=== PATIENT | female | born 1965 | race Caucasian/White ===

== ENCOUNTER 2018-03-31 15:41 | Inpatient (IN) | payer BC, SELFPAY ==
[2018-03-31 15:57] VITALS: BMI 28.7
[2018-03-31] MEDS ORDERED: Iohexol 240 (50 ml) PO STA (16:22)
[2018-03-31] MEDS ORDERED: Sodium Chloride 0.9% 1,000 ML IV STA (16:22)
[2018-03-31 16:35] LABS: BASO % 0.2 % (0.0-2.0); EOS % 0.1 % (0.0-4.0); HEMOGLOBIN 13.4 g/dL (11.0-16.0); LYMPH # 1.7 K/uL (1.0-4.3); LYMPH % 11.4 % (20.0-40.0); MEAN CELL VOLUME 84.5 fL (81.0-99.0); MEAN CORPUSCULAR HEMOGLOBIN 28.3 pg (27.0-31.0); MEAN CORPUSCULAR HGB CONC 33.5 g/dL (33.0-37.0); MEAN PLATELET VOLUME 8.7 fL (7.2-11.7); MONO # 0.6 K/uL (0.0-0.8); MONO % 4.3 % (0.0-10.0); NEUT # 12.3 K/uL (1.8-7.0); RBC 4.72 Mil/uL (3.80-5.20); RED CELL DISTRIBUTION WIDTH 16.6 % (11.5-14.5); WHITE BLOOD COUNT 14.6 K/uL (4.8-10.8)
[2018-03-31] MEDS ORDERED: Iohexol 240 (50 ml) ONE (16:37)
[2018-03-31] MEDS ORDERED: Sodium Chloride 0.9% 1,000 ML ONE (16:37)
[2018-03-31 16:43] LABS: INR 1.3; PROTHROMBIN TIME 14.2 SECONDS (9.7-12.2)
[2018-03-31 16:49] LABS: ALB/GLOB RATIO 1.1 (1.0-2.1); ALBUMIN 4.3 g/dL (3.5-5.0); ALT/SGPT 36 U/L (9-52); AST/SGOT 25 U/L (14-36); BLOOD UREA NITROGEN 9 mg/dL (7-17); CALCIUM 9.3 mg/dl (8.6-10.4); GFR NON-AFRICAN AMERICAN > 60; LIPASE 38 U/L (23-300)
[2018-03-31] MEDS ORDERED: Iodixanol 320 MG/ML 100 ML BOTTLE IV ONE (17:12)
--- NOTE | 2018-03-31 17:25 | C.PDOC ---
Addendum entered and electronically signed by Analia Holland PA-C 04/03/18 19:07: Addendum Addendum: 04/03/18 19:06 for signature Original Note: History Of Present Illness 52 year old female presents to the ED for evaluation of right lower quadrant abdominal pain which has been intermittent for the past 3 days. Patient was evaluated her by PMD today and was referred to the ED for possible appendicitis. Patient denies fever, chills. LMP was 2010. PMD: Dr. Woodrow Hodges Time Seen by Provider: 03/31/18 16:01 Chief Complaint (Nursing): Abdominal Pain History Per: Patient History/Exam Limitations: no limitations Onset/Duration Of Symptoms: Days (3), Intermittent Episodes Current Symptoms Are (Timing): Still Present Location Of Pain/Discomfort: RLQ Quality Of Discomfort: "Pain" Associated Symptoms: denies: Fever, Chills Additional History Per: Patient Past Medical History Reviewed: Historical Data, Nursing Documentation, Vital Signs Vital Signs: Last Vital Signs Temp 99.2 F 03/31/18 15:57 Pulse 122 H 03/31/18 15:57 Resp 18 03/31/18 15:57 BP 148/82 03/31/18 15:57 Pulse Ox 98 03/31/18 15:57 - Medical History PMH: No Chronic Diseases Surgical History: No Surg Hx Family History: States: Unknown Family Hx - Social History Hx Alcohol Use: No Hx Substance Use: No Review Of Systems Constitutional: Negative for: Fever, Chills Gastrointestinal: Positive for: Abdominal Pain (right lower quadrant ) Physical Exam - Physical Exam Appears: Non-toxic, No Acute Distress Skin: Normal Color, Warm, Dry Head: Atraumatic, Normacephalic Eye(s): bilateral: Normal Inspection Oral Mucosa: Moist Neck: Supple Chest: Symmetrical, No Deformity, No Tenderness Cardiovascular: Rhythm Regular, No Murmur Respiratory: Normal Breath Sounds, No Rales, No Rhonchi, No Wheezing Gastrointestinal/Abdominal: Soft, Tenderness (right lower quadrant ), No Guarding, No Rebound Extremity: Normal ROM, Capillary Refill (less than 2 seconds ) Neurological/Psych: Oriented x3, Normal Speech, Normal Cognition ED Course And Treatment - Laboratory Results Result Diagrams: 03/31/18 16:29 03/31/18 16:29 O2 Sat by Pulse Oximetry: 98 (on RA) Pulse Ox Interpretation: Normal - CT Scan/US CT A/P Other Rad Studies (CT/US): Read By Radiologist, Radiology Report Reviewed CT/US Interpretation: PROCEDURE: CT Abdomen and Pelvis with contrast. HISTORY: RLQ abd pain. COMPARISON: None. TECHNIQUE: Contrast dose: 100 mL Visipaque 320. Radiation dose: Total exam DLP = 801.82 mGy-cm. This CT exam was performed using one or more of the following dose reduction techniques: Automated exposure control, adjustment of the mA and/or kV according to patient size, and/or use of iterative reconstruction technique. FINDINGS: LOWER THORAX: Unremarkable. LIVER: Hepatic steatosis. No gross lesion or ductal dilatation. GALLBLADDER AND BILE DUCTS: Unremarkable. PANCREAS: Unremarkable. No gross lesion or ductal dilatation. SPLEEN: Unremarkable. ADRENALS: Unremarkable. No mass. KIDNEYS AND URETERS: Unremarkable. No hydronephrosis. No solid mass. VASCULATURE: Unremarkable. No aortic aneurysm. No aortic atherosclerotic calcification or mural plaque present. BOWEL: Unremarkable. Prominent amount of retained colonic stool. No obstruction. No gross mural thickening. APPENDIX: Thick walled 13 mm appendix with periappendiceal stranding. No adjacent fluid collection. PERITONEUM: Unremarkable. No free fluid. No free air. LYMPH NODES: Unremarkable. No enlarged lymph nodes. BLADDER: Unremarkable. REPRODUCTIVE: Unremarkable. BONES: No acute fracture. OTHER FINDINGS: None. IMPRESSION: Acute appendicitis. No evidence of perforation. Findings conveyed to DECLAN Holland by Dr. Vaz at 5:33 p.m. on 03/31/2018. Progress Note: Bloodwork, urinalysis, CT A/P ordered and reviewed. IV Fluids given. CT scan shows patient has acute appendicitis. Case discussed with Dr. Godinez who accepts the patient for surgery. Advised to contact Dr. Tyler for medical consult. Case discussed with Dr. Tyler, who accepts the consult. Disposition - Disposition Disposition: HOSPITALIZED Disposition Time: 17:49 Condition: FAIR Forms: [facility] (Frisian) - Clinical Impression Clinical Impression: Acute appendicitis - PA / SDV PILOT/NAVIGATOR/DDS OPERATOR / Resident Statement MD/DO has reviewed & agrees with the documentation as recorded. - Scribe Statement The provider has reviewed the documentation as recorded by the Scribe (Iwona Steven) All medical record entries made by the Scribe were at my direction and personally dictated by me. I have reviewed the chart and agree that the record accurately reflects my personal performance of the history, physical exam, medical decision making, and the department course for this patient. I have also personally directed, reviewed, and agree with the discharge instructions and disposition. Decision To Admit - Pt Status Changed To: Hospital Disposition Of: Inpatient - Admit Certification Admit to Inpatient:: After my assessment, the patient will require hospitalization for at least two midnights. This is because of the severity of symptoms shown, intensity of services needed, and/or the medical risk in this patient being treated as an outpatient. - InPatient: Physician Admission Certification:: will need surgical treatment for acute appendicitis - . Bed Request Type: Regular Admitting Physician: Phoenix Godinez Patient Diagnosis: Acute appendicitis
[2018-03-31 17:28] LABS: SQUAMOUS EPITHIAL 2 /hpf (0-5); URINE BACTERIA RARE (<OCC); URINE BILIRUBIN NEGATIVE (NEGATIVE); URINE BLOOD 2+ (NEGATIVE); URINE CLARITY Hazy (Clear); URINE COLOR Yellow (YELLOW); URINE GLUCOSE (UA) NORMAL (Normal); URINE LEUKOCYTE ESTERASE NEG Leu/uL (Negative); URINE PROTEIN NEGATIVE (NEGATIVE); URINE UROBILINOGEN NORMAL mg/dL (0.2-1.0)
--- NOTE | 2018-03-31 17:37 | CT ---
Date of service: 03/31/2018 PROCEDURE: CT Abdomen and Pelvis with contrast HISTORY: RLQ abd pain COMPARISON: None. TECHNIQUE: Contrast dose: 100 mL Visipaque 320 Radiation dose: Total exam DLP = 801.82 mGy-cm. This CT exam was performed using one or more of the following dose reduction techniques: Automated exposure control, adjustment of the mA and/or kV according to patient size, and/or use of iterative reconstruction technique. FINDINGS: LOWER THORAX: Unremarkable. LIVER: Hepatic steatosis. No gross lesion or ductal dilatation. GALLBLADDER AND BILE DUCTS: Unremarkable. PANCREAS: Unremarkable. No gross lesion or ductal dilatation. SPLEEN: Unremarkable. ADRENALS: Unremarkable. No mass. KIDNEYS AND URETERS: Unremarkable. No hydronephrosis. No solid mass. VASCULATURE: Unremarkable. No aortic aneurysm. No aortic atherosclerotic calcification or mural plaque present. BOWEL: Unremarkable. Prominent amount of retained colonic stool. No obstruction. No gross mural thickening. APPENDIX: Thick walled 13 mm appendix with periappendiceal stranding. No adjacent fluid collection. PERITONEUM: Unremarkable. No free fluid. No free air. LYMPH NODES: Unremarkable. No enlarged lymph nodes. BLADDER: Unremarkable. REPRODUCTIVE: Unremarkable. BONES: No acute fracture. OTHER FINDINGS: None. IMPRESSION: Acute appendicitis. No evidence of perforation. Findings conveyed to DECLAN Holland by Dr. Vaz at 5:33 p.m. on 03/31/2018.
[2018-03-31] MEDS ORDERED: Piperacillin/Tazobact 3.375 gm 100 ML IV STA (17:42)
[2018-03-31] MEDS ORDERED: Morphine 4 MG/ML VIAL IV STA (17:43)
[2018-03-31] MEDS ORDERED: Piperacillin/Tazobact 3.375 gm 100 ML IVPB ONE (17:50)
[2018-03-31] MEDS ORDERED: Morphine 4 MG/ML VIAL ONE (17:58)
[2018-03-31] MEDS ORDERED: Oxycodone/Acetaminophen 5/325 mg Tab PO PRN (18:15)
[2018-03-31] MEDS ORDERED: LACTATED RINGER S IV SCH (19:15)
[2018-03-31] MEDS ORDERED: POTASSIUM PHOSPHATE IV SCH (19:15)
--- NOTE | 2018-03-31 19:20 | CP.PCM.HP ---
History of Present Illness - History of Present Illness History of Present Illness: H&P for Dr. Godinez CC: acute appendicitis Pt is a 52F with PMH of hypothyroidism and HLD, PSH of fibroidectomies and hysterectomy who presented to ED for 2 days of worsening abdominal pain. Pt states that her pain began suddenly Saturday, was at first diffuse and then localized to the RLQ. Patient states that pain improved Saturday but then was so bad this AM she came to the ER. Denies any fevers, but admits to nausea and vomiting green/yellow fluid on Saturday, denies any hematemesis and denies any nausea at present. States she had one bout of diarrhea today in the ER--nonbloody, normal color. Patient denies any dysuria, hematuria, back pain, chest pain, SOB, or any other symptoms. she had never had this pain before. PMH: hypothyroidism, HLD PSH: fibroidectomy, hysterectomy, jaw surgery ALL: nkda Social: denies tobacco, ETOH, or drugs use Present on Admission - Present on Admission Any Indicators Present on Admission: No Review of Systems - Review of Systems All systems: reviewed and no additional remarkable complaints except (as per HPI) Past Patient History - Past Medical History & Family History Past Medical History?: Yes Past Family History: Reviewed and not pertinent - Past Social History Smoking Status: Never Smoked Alcohol: None Drugs: Denies - CARDIAC Hx Heart Attack: No Hx Hypercholesterolemia: Yes Hx Hypertension: No - PULMONARY Hx Respiratory Disorders: No - ENDOCRINE/METABOLIC Hx Endocrine Disorders: Yes Hx Diabetes Mellitus Type 1: No Hx Diabetes Mellitus Type 2: No Hx Hypothyroidism: Yes - GASTROINTESTINAL Hx Gastrointestinal Disorders: No - GENITOURINARY/GYNECOLOGICAL Hx Reproductive Disorders: Yes (uterine fibroids) - PSYCHIATRIC Hx Substance Use: No - SURGICAL HISTORY Hx Surgeries: Yes Hx Hysterectomy: Yes (PARTIAL PER PATIENT) Other/Comment: uterine fibroidectomy, jaw surgery - ANESTHESIA Hx Anesthesia: Yes Meds Allergies/Adverse Reactions: Allergies Allergy/AdvReac Type Severity Reaction Status Date / Time No Known Allergies Allergy Unverified 03/31/18 15:56 Physical Exam - Constitutional Appears: Well, Non-toxic, No Acute Distress - Head Exam Head Exam: ATRAUMATIC, NORMOCEPHALIC - Eye Exam Eye Exam: Normal appearance. absent: Conjunctival injection, Scleral icterus - ENT Exam ENT Exam: Mucous Membranes Moist, Normal Oropharynx - Respiratory Exam Respiratory Exam: NORMAL BREATHING PATTERN. absent: Accessory Muscle Use, Respiratory Distress - Cardiovascular Exam Cardiovascular Exam: RRR - GI/Abdominal Exam GI & Abdominal Exam: Soft, Tenderness (RLQ severe tenderness, RUQ mild tenderness). absent: Distended, Firm, Rebound, Rigid Additional comments: positive rovsings sign - Extremities Exam Extremities exam: Positive for: pedal pulses present. Negative for: calf tenderness, pedal edema - Neurological Exam Neurological exam: Alert, Oriented x3 - Psychiatric Exam Psychiatric exam: Normal Affect, Normal Mood - Skin Skin Exam: Dry, Intact, Normal Color, Warm Results - Vital Signs Recent Vital Signs: Last Vital Signs Temp 99.6 F 03/31/18 18:16 Pulse 102 H 03/31/18 18:16 Resp 18 03/31/18 18:16 BP 115/75 03/31/18 18:16 Pulse Ox 98 03/31/18 18:16 - Labs Result Diagrams: 03/31/18 16:29 03/31/18 16:29 Labs: Laboratory Results - last 24 hr 03/31/18 03/31/18 03/31/18 16:29 16:29 16:29 WBC 14.6 H D RBC 4.72 Hgb 13.4 Hct 39.9 MCV 84.5 D MCH 28.3 MCHC 33.5 RDW 16.6 H Plt Count 250 MPV 8.7 Neut % (Auto) 84.0 H Lymph % (Auto) 11.4 L [place] % (Auto) 4.3 Eos % (Auto) 0.1 Baso % (Auto) 0.2 Neut # (Auto) 12.3 H Lymph # (Auto) 1.7 [place] # (Auto) 0.6 Eos # (Auto) 0.0 Baso # (Auto) 0.0 PT 14.2 H INR 1.3 APTT 30 Sodium Potassium Chloride Carbon Dioxide Anion Gap BUN Creatinine Est GFR ( Amer) Est GFR (Non-Af Amer) Random Glucose Calcium Total Bilirubin AST ALT Alkaline Phosphatase Total Protein Albumin Globulin Albumin/Globulin Ratio Lipase Urine Color Yellow Urine Clarity Hazy Urine pH 6.0 Ur Specific [place] 1.012 Urine Protein Negative Urine Glucose (UA) Normal Urine Ketones 1+ H Urine Blood 2+ H Urine Nitrate Negative Urine Bilirubin Negative Urine Urobilinogen Normal Ur Leukocyte Esterase Neg Urine WBC (Auto) 3 Urine RBC (Auto) 9 H Ur Squamous Epith Cells 2 Urine Bacteria Rare 03/31/18 16:29 WBC RBC Hgb Hct MCV MCH MCHC RDW Plt Count MPV Neut % (Auto) Lymph % (Auto) [place] % (Auto) Eos % (Auto) Baso % (Auto) Neut # (Auto) Lymph # (Auto) [place] # (Auto) Eos # (Auto) Baso # (Auto) PT INR APTT Sodium 140 Potassium 3.4 L Chloride 102 Carbon Dioxide 24 Anion Gap 18 BUN 9 Creatinine 0.6 L Est GFR ( Amer) > 60 Est GFR (Non-Af Amer) > 60 Random Glucose 120 H Calcium 9.3 Total Bilirubin 0.7 AST 25 ALT 36 Alkaline Phosphatase 109 Total Protein 8.1 Albumin 4.3 Globulin 3.8 Albumin/Globulin Ratio 1.1 Lipase 38 Urine Color Urine Clarity Urine pH Ur Specific [place] Urine Protein Urine Glucose (UA) Urine Ketones Urine Blood Urine Nitrate Urine Bilirubin Urine Urobilinogen Ur Leukocyte Esterase Urine WBC (Auto) Urine RBC (Auto) Ur Squamous Epith Cells Urine Bacteria - Imaging and Cardiology CT scan - abdomen Status: Image reviewed by me, Report reviewed by me Assessment & Plan - Assessment and Plan (Free Text) Assessment: 52F with acute appendicitis Plan: admit to med/surgery floor IVF IV antibiotics PRN pain and nausea medication NPO except meds plan for OR 03/31 if medical clearance obtained SCD, incentive spirometer, hold DVT chemoprophylaxis for OR trend CBC/BMP Discussed with Dr. Godinez, who agreed with above Yudy Arredondo, PGY2
[2018-03-31] MEDS: Potassium Chloride 40 MEQ in Lactated Ringer's 1,000 ML IV SCH (20:44)
--- NOTE | 2018-03-31 22:10 | CP.PCM.CON ---
Past Patient History - Past Medical History & Family History Past Medical History?: Yes - Past Social History Smoking Status: Never Smoked - CARDIAC Hx Heart Attack: No Hx Hypercholesterolemia: Yes Hx Hypertension: No - PULMONARY Hx Respiratory Disorders: No - ENDOCRINE/METABOLIC Hx Endocrine Disorders: Yes Hx Diabetes Mellitus Type 1: No Hx Diabetes Mellitus Type 2: No Hx Hypothyroidism: Yes - MUSCULOSKELETAL/RHEUMATOLOGICAL Hx Falls: No - GASTROINTESTINAL Hx Gastrointestinal Disorders: No - GENITOURINARY/GYNECOLOGICAL Hx Reproductive Disorders: Yes (uterine fibroids) - PSYCHIATRIC Hx Substance Use: No - SURGICAL HISTORY Hx Surgeries: Yes Hx Hysterectomy: Yes (PARTIAL PER PATIENT) Other/Comment: uterine fibroidectomy, jaw surgery - ANESTHESIA Hx Anesthesia: Yes Hx Anesthesia Reactions: No Meds Allergies/Adverse Reactions: Allergies Allergy/AdvReac Type Severity Reaction Status Date / Time No Known Allergies Allergy Unverified 03/31/18 15:56 - Medications Medications: Current Medications Acetaminophen (Tylenol 325mg Tab) 650 mg PO Q6 PRN PRN Reason: Fever >100.4 F Piperacillin Sod/Tazobactam Sod (Zosyn 3.375 In Ns 100ml) 100 mls @ 200 mls/hr IVPB Q6H [facility]; Protocol Potassium Chloride 40 meq/ (Lactated Ringer's) 1,020 mls @ 125 mls/hr IV .Q8H10M [facility] Last Admin: 03/31/18 20:44 Dose: 125 mls/hr Influenza Virus Vaccine (Fluzone Quad 2247-1359) 60 mcg IM .ONCE ONE Stop: 04/02/18 10:01 Levothyroxine Sodium (Synthroid) 50 mcg PO DAILY@0630 [facility] Morphine Sulfate (Morphine) 2 mg IVP Q4H PRN PRN Reason: Pain, severe (8-10) Ondansetron HCl (Zofran Inj) 4 mg IVP Q6 PRN PRN Reason: Nausea/Vomiting Oxycodone/Acetaminophen (Percocet 5/325 Mg Tab) 1 tab PO Q4 PRN PRN Reason: Pain, moderate (4-7) Stop: 04/03/18 18:16 Pneumococcal Polyvalent Vaccine (Pneumovax 23 Vaccine) 0.5 ml IM .ONCE ONE Stop: 04/02/18 10:01 Results - Vital Signs Recent Vital Signs: Last Vital Signs Temp 98.7 F 10/29/18 18:57 Pulse 96 H 03/31/18 18:57 Resp 20 03/31/18 18:57 BP 133/82 03/31/18 18:57 Pulse Ox 95 03/31/18 18:57 - Labs Result Diagrams: 03/31/18 16:29 03/31/18 16:29 Labs: Laboratory Results - last 24 hr 03/31/18 03/31/18 03/31/18 16:29 16:29 16:29 WBC 14.6 H D RBC 4.72 Hgb 13.4 Hct 39.9 MCV 84.5 D MCH 28.3 MCHC 33.5 RDW 16.6 H Plt Count 250 MPV 8.7 Neut % (Auto) 84.0 H Lymph % (Auto) 11.4 L [place] % (Auto) 4.3 Eos % (Auto) 0.1 Baso % (Auto) 0.2 Neut # (Auto) 12.3 H Lymph # (Auto) 1.7 [place] # (Auto) 0.6 Eos # (Auto) 0.0 Baso # (Auto) 0.0 PT 14.2 H INR 1.3 APTT 30 Sodium Potassium Chloride Carbon Dioxide Anion Gap BUN Creatinine Est GFR ( Amer) Est GFR (Non-Af Amer) Random Glucose Calcium Total Bilirubin AST ALT Alkaline Phosphatase Total Protein Albumin Globulin Albumin/Globulin Ratio Lipase Urine Color Yellow Urine Clarity Hazy Urine pH 6.0 Ur Specific [place] 1.012 Urine Protein Negative Urine Glucose (UA) Normal Urine Ketones 1+ H Urine Blood 2+ H Urine Nitrate Negative Urine Bilirubin Negative Urine Urobilinogen Normal Ur Leukocyte Esterase Neg Urine WBC (Auto) 3 Urine RBC (Auto) 9 H Ur Squamous Epith Cells 2 Urine Bacteria Rare 03/31/18 16:29 WBC RBC Hgb Hct MCV MCH MCHC RDW Plt Count MPV Neut % (Auto) Lymph % (Auto) [place] % (Auto) Eos % (Auto) Baso % (Auto) Neut # (Auto) Lymph # (Auto) [place] # (Auto) Eos # (Auto) Baso # (Auto) PT INR APTT Sodium 140 Potassium 3.4 L Chloride 102 Carbon Dioxide 24 Anion Gap 18 BUN 9 Creatinine 0.6 L Est GFR ( Amer) > 60 Est GFR (Non-Af Amer) > 60 Random Glucose 120 H Calcium 9.3 Total Bilirubin 0.7 AST 25 ALT 36 Alkaline Phosphatase 109 Total Protein 8.1 Albumin 4.3 Globulin 3.8 Albumin/Globulin Ratio 1.1 Lipase 38 Urine Color Urine Clarity Urine pH Ur Specific [place] Urine Protein Urine Glucose (UA) Urine Ketones Urine Blood Urine Nitrate Urine Bilirubin Urine Urobilinogen Ur Leukocyte Esterase Urine WBC (Auto) Urine RBC (Auto) Ur Squamous Epith Cells Urine Bacteria
[2018-03-31] MEDS: Piperacillin/Tazobact 3.375 gm 100 ML IVPB SCH (23:51)
[2018-04-01] MEDS: Potassium Chloride 40 MEQ in Lactated Ringer's 1,000 ML IV SCH (04:53)
[2018-04-01] MEDS: Piperacillin/Tazobact 3.375 gm 100 ML IVPB SCH ×2 (05:07→10:30)
[2018-04-01] MEDS: Levothyroxine 50 MCG TAB PO SCH (05:33)
[2018-04-01 07:59] LABS: BASO % 0.3 % (0.0-2.0); EOS % 0.2 % (0.0-4.0); HEMOGLOBIN 12.5 g/dL (11.0-16.0); LYMPH # 1.9 K/uL (1.0-4.3); LYMPH % 12.6 % (20.0-40.0); MEAN CELL VOLUME 84.6 fL (81.0-99.0); MEAN CORPUSCULAR HEMOGLOBIN 28.7 pg (27.0-31.0); MEAN CORPUSCULAR HGB CONC 33.9 g/dL (33.0-37.0); MEAN PLATELET VOLUME 9.3 fL (7.2-11.7); MONO # 0.7 K/uL (0.0-0.8); MONO % 4.5 % (0.0-10.0); NEUT # 12.2 K/uL (1.8-7.0); NEUT % 82.4 % (50.0-75.0); RBC 4.34 Mil/uL (3.80-5.20); RED CELL DISTRIBUTION WIDTH 17.2 % (11.5-14.5); WHITE BLOOD COUNT 14.8 K/uL (4.8-10.8)
[2018-04-01 08:36] LABS: BLOOD UREA NITROGEN 7 mg/dL (7-17); CALCIUM 8.8 mg/dl (8.6-10.4); GFR NON-AFRICAN AMERICAN > 60
--- NOTE | 2018-04-01 10:29 | CON ---
DATE: 03/31/2018 CHIEF COMPLAINT: Right lower quadrant abdominal pain since Saturday, two days ago. HISTORY OF PRESENT ILLNESS: This is a 52-year-old female with history of hypothyroidism, who is compliant with her diet, medication, and followup since Saturday. She is having right lower quadrant abdominal pain, associated with nausea, not associated with any vomiting. The patient has fever, chills. The patient denies any history of dysuria, hematuria, or pyuria. The patient denies any sneezing, itchy eyes, or itchy nose. There is no history of trauma, fall, or loss of consciousness. The patient has right lower quadrant pain. No dysuria. The pain is worse on deep inspiration. SOCIAL HISTORY: Nonsmoker, nonETOH user. CURRENT MEDICATIONS: Synthroid. PHYSICAL EXAMINATION: GENERAL: A middle-aged female in mild distress, with right lower quadrant pain. VITAL SIGNS: BP 133/62, pulse 96, respiratory rate 20, and temperature 98.7. SKIN: No rashes. No bruises. No purpura. No petechia. HEENT: Atraumatic, normocephalic. Negative pallor. Negative jaundice. Extraocular movements are intact. NECK: Supple. No JVD. No lymph node. No thyromegaly. CHEST WALL: Bilateral symmetrical expansion noted. LUNGS: Clear. No rales. No rhonchi. CARDIOVASCULAR SYSTEM: S1, S2 regular. No heave. No thrill. ABDOMEN: Right lower quadrant rebound tenderness. Bowel sounds are positive. RECTAL: No masses. No bleed. CENTRAL NERVOUS SYSTEM: Awake, alert, oriented x3. ASSESSMENT: Acute appendicitis, less likely to be urinary tract infection. PLAN: Admit. Detailed orders written. The patient will follow up with Dr. Godinez tomorrow morning. Fred Tyler MD
[2018-04-01] MEDS ORDERED: Midazolam 2 MG/2 ML VIAL ONE (14:06)
[2018-04-01] MEDS ORDERED: Propofol 10 mg/ml Inj (20 ML) ONE (14:06)
[2018-04-01] MEDS ORDERED: Succinylcholine Chloride 20 mg/ml Syr (5 ml) IV ONE (14:07)
[2018-04-01] MEDS: Lactated Ringer's 1,000 ML IV SCH ×2 (14:34→20:50)
[2018-04-01] MEDS: Lidocaine/Epinephrine 1% 1:100000 10 ML IJ ONE ×2 (14:45→14:54)
[2018-04-01] MEDS: Bupivacaine 0.25% 20 ML INJ IJ ONE ×2 (14:45→14:54)
[2018-04-01] MEDS ORDERED: Neostigmine Methylsulfate 3mg/3ml Syringe IV ONE (15:56)
[2018-04-01] MEDS ORDERED: HYDROmorphone 0.5 mg/0.5 ml ISec IVP PRN (16:38)
--- NOTE | 2018-04-01 16:42 | PCM.SURG1 ---
Surgeon's Initial Post Op Note - Surgeon's Notes Surgeon: Dr. Godinez [employer] Teacher'S Aide: ai Flannery PGY3 Type of Anesthesia: General Endo, Local Anesthesia Administered By: Dr. Price Pre-Operative Diagnosis: Acute appendicitis Operative Findings: inflammed appendix, adhesions. Post-Operative Diagnosis: Same Operation Performed: laparoscopic appendectomy with drain Specimen/Specimens Removed: appendix Estimated Blood Loss: EBL {In ML}: 50 Blood Products Given: N/A Drains Used: Herb Post-Op Condition: Good Date of Surgery/Procedure: 04/01/18 Time of Surgery/Procedure: 16:42
[2018-04-01] MEDS: Piperacillin/Tazobact 3.375 GM in Sodium Chloride 0.9% 100 ML IVPB SCH ×2 (18:17→22:39)
--- NOTE | 2018-04-01 22:29 | CP.PCM.PN ---
Subjective - Subjective Subjective: dictated Objective - Vital Signs/Intake and Output Vital Signs (last 24 hours): Temp Pulse Resp BP Pulse Ox 98.9 F 94 H 15 131/71 97 04/01/18 17:52 04/01/18 17:52 04/01/18 17:52 04/01/18 17:52 04/01/18 17:52 Intake and Output: 04/01/18 04/02/18 18:59 06:59 Intake Total 2950 1050 Output Total 40 20 Balance 2910 1030 - Medications Medications: Current Medications Acetaminophen (Tylenol 325mg Tab) 650 mg PO Q6 PRN PRN Reason: Fever >100.4 F Hydromorphone HCl (Dilaudid) 0.5 mg IVP Q10M PRN PRN Reason: Pain, moderate (4-7) Piperacillin Sod/Tazobactam (Sod 3.375 gm/ Sodium Chloride) 100 mls @ 200 ml s/hr IVPB Q6H [facility]; Protocol Last Admin: 04/01/18 18:17 Dose: 200 mls/hr Lactated Ringer's (Lactated Ringer's) 1,000 mls @ 125 mls/hr IV .Q8H [facility] Last Admin: 04/01/18 20:50 Dose: Not Given Influenza Virus Vaccine (Fluzone Quad [id number]) 60 mcg IM .ONCE ONE Stop: 04/02/18 10:01 Levothyroxine Sodium (Synthroid) 50 mcg PO DAILY@0630 [facility]ANNA Last Admin: 04/01/18 05:33 Dose: 50 mcg Morphine Sulfate (Morphine) 2 mg IVP Q4H PRN PRN Reason: Pain, severe (8-10) Last Admin: 04/01/18 18:17 Dose: 2 mg Ondansetron HCl (Zofran Inj) 4 mg IVP Q6 PRN PRN Reason: Nausea/Vomiting Oxycodone/Acetaminophen (Percocet 5/325 Mg Tab) 1 tab PO Q4 PRN PRN Reason: Pain, moderate (4-7) Stop: 04/03/18 18:16 Last Admin: 04/01/18 21:39 Dose: 1 tab Pneumococcal Polyvalent Vaccine (Pneumovax 23 Vaccine) 0.5 ml IM .ONCE ONE Stop: 04/02/18 10:01 - Labs Labs: 04/01/18 07:45 04/01/18 07:45 PT 14.2 SECONDS (9.7-12.2) H 03/31/18 16:29 INR 1.3 03/31/18 16:29 APTT 30 SECONDS (21-34) 03/31/18 16:29
[2018-04-02 00:49] VITALS: RESP 20
--- NOTE | 2018-04-02 02:50 | PN ---
DATE: 04/01/2018 SUBJECTIVE: Robbin is status post . Postsurgery, the patient did well. PHYSICAL EXAMINATION: VITAL SIGNS: Blood pressure is 131/71, pulse 94, respiratory rate 15, and temperature 98.9. LUNGS: Clear. CARDIOVASCULAR SYSTEM: S1 and S2 regular. ABDOMEN: Postop. ASSESSMENT: Acute appendicitis. PLAN: Postop care. Monitor the patient. Fred Tyler MD
[2018-04-02] MEDS: Lactated Ringer's 1,000 ML IV SCH ×2 (03:28→04:50)
--- NOTE | 2018-04-02 04:43 | OP ---
PROCEDURE DATE: 04/01/2018 PREOPERATIVE DIAGNOSIS: Acute appendicitis with leukocytosis. POSTOPERATIVE DIAGNOSES: 1. Acute phlegmonous appendicitis with periappendicular abscess. 2. Pelvic abscess. PROCEDURES DONE: 1. Laparoscopic appendectomy. 2. Laparoscopic drainage of pelvic abscess and periappendicular abscess. 3. Laparoscopic enterolysis, extensive. 4. Open umbilical hernia repair without mesh primary closure. SURGEON: Phoenix Godinez MD DESKTOP PUBLISHING OPERATOR: Alberta Flannery DO, PGY-2 resident ANESTHESIA: General endotracheal tube anesthesia. ESTIMATED BLOOD LOSS: Around 50 mL. DRAINS: A 19-[place] Herb drain was placed. COMPLICATIONS: None. INTRAOPERATIVE FINDINGS: The patient had acute phlegmonous appendicitis with pelvic and periappendicular abscess and extensive lysis of the adhesion was done, which took approximately 40 to 60 minutes extra for the routine procedure. DESCRIPTION OF PROCEDURE: On intraoperative steps, this 52-year-old female was diagnosed with acute appendicitis and leukocytosis, the patient was consented for the laparoscopic appendectomy possible open. Brought to the OR, placed supine on the operating room table. After induction of the anesthesia, the abdomen was prepped and draped in the usual sterile fashion. A supraumbilical transverse incision was made after incising the skin, subcutaneous tissue and the fascia. Grossman port was placed. Pneumo was created. Another 5-mm port was placed in the suprapubic region. A 12-mm port was placed in the left lower quadrant. Grasper and dissector were introduced. The patient was found to have phlegmon of cecum, small bowel and appendix attached to the lateral pelvic wall. With the blunt and sharp dissection, the phlegmon was dissected. Enterolysis was done. There was a periappendicular abscess that was drained. The patient also had a pelvic abscess that was also drained. Suction irrigation of the pelvic abscess was done. Now, again extensive enterolysis was done in order to separate the appendix from the cecum as well as from the ileum. The base of the appendix was identified. The base of the appendix was resected with the DEAN, and the mesoappendix was resected with Harmonic scalpel. The appendix was taken out through the umbilical port site and sent off the table for the pathology. Due to extensive dissection, the appendix was opened down into pieces. Proper hemostasis was achieved. The suction irrigation of the periappendicular area as well as the perihepatic area was done. Complete drainage of all the serosanguineous fluid was done. A 19-[place] Herb drain was placed. All the ports were taken out. During the taking out of the port, the patient was found to have umbilical hernia. The fourth procedure was done. The hernial sac was dissected and it was sent off the table for the pathology. The defect was closed with 0 Prolene interrupted multiple suture. All the wounds were closed with 2-0 Vicryl and 4-0 Monocryl. A dry sterile dressing was applied. The patient tolerated the procedure well. Counts of instrument and gauze were correct. There were no apparent complications. The patient was extubated in the OR and sent to the postanesthesia care unit in stable condition. Phoenix Godinez MD
[2018-04-02] MEDS: Piperacillin/Tazobact 3.375 GM in Sodium Chloride 0.9% 100 ML IVPB SCH ×2 (05:19→11:57)
[2018-04-02] MEDS: Levothyroxine 50 MCG TAB PO SCH (06:23)
[2018-04-02 07:30] VITALS: BP 96/60; PULSE 66; TEMP 98.8; O2SAT 97
[2018-04-02] MEDS ORDERED: Pneumococcal 23-Valent Vaccine IM ONE ×2 (10:00→11:27)
[2018-04-02] MEDS ORDERED: Influenza Vaccine 60 MCG/0.5 ML SYR (3 yr & up) IM ONE ×2 (10:00→11:27)
--- NOTE | 2018-04-02 15:26 | CP.PCM.DIS ---
Provider - Provider Date of Admission: 03/31/18 18:05 Attending physician: Phoenix Godinez MD Time Spent in preparation of Discharge (in minutes): 29 Diagnosis - Discharge Diagnosis (1) Acute appendicitis Status: Acute Comment: s/p appendectomy Hospital Course - Lab Results Lab Results: Most Recent Lab Values WBC 14.8 K/uL (4.8-10.8) H 04/01/18 07:45 RBC 4.34 Mil/uL (3.80-5.20) 04/01/18 07:45 Hgb 12.5 g/dL (11.0-16.0) 04/01/18 07:45 Hct 36.7 % (34.0-47.0) 04/01/18 07:45 MCV 84.6 fL (81.0-99.0) 04/01/18 07:45 MCH 28.7 pg (27.0-31.0) 04/01/18 07:45 MCHC 33.9 g/dL (33.0-37.0) 04/01/18 07:45 RDW 17.2 % (11.5-14.5) H 04/01/18 07:45 Plt Count 232 K/uL (130-400) 04/01/18 07:45 MPV 9.3 fL (7.2-11.7) 04/01/18 07:45 Neut % (Auto) 82.4 % (50.0-75.0) H 04/01/18 07:45 Lymph % (Auto) 12.6 % (20.0-40.0) L 04/01/18 07:45 Vermillion % (Auto) 4.5 % (0.0-10.0) 04/01/18 07:45 Eos % (Auto) 0.2 % (0.0-4.0) 04/01/18 07:45 Baso % (Auto) 0.3 % (0.0-2.0) 04/01/18 07:45 Neut # (Auto) 12.2 K/uL (1.8-7.0) H 04/01/18 07:45 Lymph # (Auto) 1.9 K/uL (1.0-4.3) 04/01/18 07:45 Vermillion # (Auto) 0.7 K/uL (0.0-0.8) 04/01/18 07:45 Eos # (Auto) 0.0 K/uL (0.0-0.7) 04/01/18 07:45 Baso # (Auto) 0.0 K/uL (0.0-0.2) 04/01/18 07:45 PT 14.2 SECONDS (9.7-12.2) H 03/31/18 16:29 INR 1.3 03/31/18 16:29 APTT 30 SECONDS (21-34) 03/31/18 16:29 Sodium 139 mmol/L (132-148) 04/01/18 07:45 Potassium 4.1 mmol/L (3.6-5.2) 04/01/18 07:45 Chloride 106 mmol/L (98-107) 04/01/18 07:45 Carbon Dioxide 22 mmol/L (22-30) 04/01/18 07:45 Anion Gap 15 (10-20) 04/01/18 07:45 BUN 7 mg/dL (7-17) 04/01/18 07:45 Creatinine 0.7 mg/dL (0.7-1.2) 04/01/18 07:45 Est GFR ( Amer) > 60 04/01/18 07:45 Est GFR (Non-Af Amer) > 60 04/01/18 07:45 Random Glucose 101 mg/dL (65-105) 04/01/18 07:45 Calcium 8.8 mg/dl (8.6-10.4) 04/01/18 07:45 Total Bilirubin 0.7 mg/dL (0.2-1.3) 03/31/18 16:29 AST 25 U/L (14-36) 03/31/18 16:29 ALT 36 U/L (9-52) 03/31/18 16:29 Alkaline Phosphatase 109 U/L (38-126) 03/31/18 16:29 Total Protein 8.1 g/dL (6.3-8.3) 03/31/18 16:29 Albumin 4.3 g/dL (3.5-5.0) 03/31/18 16:29 Globulin 3.8 gm/dL (2.2-3.9) 03/31/18 16:29 Albumin/Globulin Ratio 1.1 (1.0-2.1) 03/31/18 16: Lipase 38 U/L (23-300) 03/31/18 16:29 Urine Color Yellow (YELLOW) 03/31/18 16: Urine Clarity Hazy (Clear) 03/31/18 16:29 Urine pH 6.0 (5.0-8.0) 03/31/18 16:29 Ur Specific Reeders 1.012 (1.003-1.030) 03/31/18 16:29 Urine Protein Negative mg/dL (NEGATIVE) 03/31/18 16:29 Urine Glucose (UA) Normal mg/dL (Normal) 03/31/18 16: Urine Ketones 1+ mg/dL (NEGATIVE) H 03/31/18 16: Urine Blood 2+ (NEGATIVE) H 03/31/18 16:29 Urine Nitrate Negative (NEGATIVE) 03/31/18 16: Urine Bilirubin Negative (NEGATIVE) 03/31/18 16: Urine Urobilinogen Normal mg/dL (0.2-1.0) 03/31/18 16:29 Ur Leukocyte Esterase Neg Ari/uL (Negative) 03/31/18 16:29 Urine WBC (Auto) 3 /hpf (0-5) 03/31/18 16:29 Urine RBC (Auto) 9 /hpf (0-3) H 03/31/18 16:29 Ur Squamous Epith Cells 2 /hpf (0-5) 03/31/18 16:29 Urine Bacteria Rare (<OCC) 03/31/18 16:29 Urine HCG, Qual Negative (NEGATIVE) 04/01/18 07:46 - Hospital Course Hospital Course: Patient is a 52 year old female who presented with abdominal pain, nausea and vomiting. CBC showed leukocytosis. CT abdomen performed in ED revealed appendicitis. Patient was started on IV antibiotics, made NPO in preparation for surgery. Pt underwent a lap appy; MACK drain was inserted. Patient is being discharged with drain in place to follow up with Dr. Godinez outpatient. HPI on admission: "Pt is a 52F with PMH of hypothyroidism and HLD, PSH of fibroidectomies and hysterectomy who presented to ED for 2 days of worsening abdominal pain. Pt states that her pain began suddenly Saturday night, was at first diffuse and then localized to the RLQ. Patient states that pain improved Saturday but then was so bad this AM she came to the ER. Denies any fevers, but admits to nausea and vomiting green/yellow fluid on Saturday, denies any hematemesis and denies any nausea at present. States she had one bout of diarrhea today in the ER--nonbloody, normal color. Patient denies any dysuria, hematuria, back pain, chest pain, SOB, or any other symptoms. she had never had this pain before." Discharge Exam - Head Exam Head Exam: ATRAUMATIC, NORMOCEPHALIC - Eye Exam Eye Exam: EOMI, Normal appearance - ENT Exam ENT Exam: Mucous Membranes Moist, Normal Exam - Neck Exam Neck exam: Normal Inspection - Respiratory Exam Respiratory Exam: NORMAL BREATHING PATTERN, UNREMARKABLE - Cardiovascular Exam Cardiovascular Exam: REGULAR RHYTHM - GI/Abdominal Exam GI & Abdominal Exam: Normal Bowel Sounds, Soft, Tenderness. absent: Distended Additional comments: MACK drain in place. Minimal tenderness to palpation - Extremities Exam Extremities exam: normal inspection - Neurological Exam Neurological exam: Alert, Oriented x3 - Psychiatric Exam Psychiatric exam: Normal Affect, Normal Mood - Skin Skin Exam: Dry, Normal Color, Warm Discharge Plan - Discharge Medications Prescriptions: levoFLOXacin [Levaquin] 500 mg PO DAILY #7 tab metroNIDAZOLE [Flagyl] 500 mg PO TID #21 tab - Follow Up Plan Condition: FAIR Disposition: HOME/ ROUTINE Instructions: Rayo-Cortes Drain, Appendicitis, Adult (DC), Levofloxacin (Systemic), Metronidazole (Systemic), Appendectomy, Laparoscopic Surgery (DC) Additional Instructions: Patient is stable for discharge home with drain. Patient instructed as to proper drain and wound care. Patient instructed to follow up with Dr. Godinez in clinic in 1 week from discharge. Patient advised to take Tylenol as needed for pain, not to exceed daily recommended dosages. Patient should return to the Emergency Department with any worsening of symptoms including but not limited to, excessive pain, excessive bleeding, high fevers, uncontrolled pain. Referrals: Phoenix Godinez MD [Staff Provider] -
--- NOTE | 2018-04-02 21:29 | CP.PCM.PN ---
Subjective - Subjective Subjective: dictated Objective - Vital Signs/Intake and Output Vital Signs (last 24 hours): Temp Pulse Resp BP Pulse Ox 98.8 F 66 20 96/60 L 97 04/02/18 07:29 04/02/18 07:29 04/02/18 07:29 04/02/18 07:29 04/02/18 07:29 Intake and Output: 04/02/18 04/03/18 18:59 06:59 Intake Total 2380 Output Total 60 Balance 2320 - Labs Labs: 04/01/18 07:45 04/01/18 07:45 PT 14.2 SECONDS (9.7-12.2) H 03/31/18 16:29 INR 1.3 03/31/18 16:29 APTT 30 SECONDS (21-34) 03/31/18 16:29
--- NOTE | 2018-04-03 06:31 | PN ---
DATE: 04/02/2018 SUBJECTIVE: Mary Jane Siegel is for discharge. Status post appendectomy. She is afebrile. She is tolerating diet. No nausea or vomiting. PHYSICAL EXAMINATION: VITAL SIGNS: Blood pressure 96/60, pulse 66, respiratory rate 20, temperature 98.8. LUNGS: Clear. ABDOMEN: Postop bowel sounds are present. CENTRAL NERVOUS SYSTEM: Normal. ASSESSMENT: 1. Acute appendicitis, status post appendectomy. 2. Hypothyroidism. PLAN: Discharge the patient. Fred Tyler MD
== END 2018-04-02 14:40 | disposition home or self-care (01) | DRG 337 ==
LOC: C.ER 15:41 → C.3T 18:05
PROVIDERS: ADMIT Surgery Surgical Critical Care; ATTEND Surgery Surgical Critical Care
PROC: 0DNW4ZZ Release Peritoneum, Percutaneous Endoscopic Approach (ICD-10-PCS; 2018-04-01)
PROC: 0W9J4ZZ Drainage of Pelvic Cavity, Percutaneous Endoscopic Approach (ICD-10-PCS; 2018-04-01)
PROC: 0WQF0ZZ Repair Abdominal Wall, Open Approach (ICD-10-PCS; 2018-04-01)
PROC: 0DTJ4ZZ Resection of Appendix, Percutaneous Endoscopic Approach (ICD-10-PCS; principal; 2018-04-01 13:30)
DX: K35.33 Acute appendicitis with perforation, localized peritonitis, and gangrene, with abscess (principal); N73.6 Female pelvic peritoneal adhesions (postinfective); K42.9 Umbilical hernia without obstruction or gangrene; E03.9 Hypothyroidism, unspecified; E78.5 Hyperlipidemia, unspecified; E78.00 Pure hypercholesterolemia, unspecified; Z90.710 Acquired absence of both cervix and uterus